=== PATIENT | male | born 1965 | race Caucasian/White ===

== ENCOUNTER 2023-02-12 00:26 | Emergency (ER) | payer MEDICAID ==
[~2023-02-12] VITALS: Ht 180.3 cm; Wt 106.1 kg
[2023-02-12 00:34] VITALS: BP_SYST 145; PULSE 83; RESP 16; TEMP 98; O2SAT 98
[2023-02-12] MEDS ORDERED: IBUP-1971 PO (01:00)
[2023-02-12] MEDS ORDERED: KETOROLAC TROMETHAMINE 60 MG/2 ML VIAL IM ONE (01:00)
[2023-02-12 01:25] VITALS: BP_SYST 145; PULSE 83; RESP 16; TEMP 98; O2SAT 98
== END 2023-02-12 01:25 | disposition home or self-care (01) ==
LOC: SED 00:26
DX: M79.18 Myalgia, other site (principal); M79.671 Pain in right foot; M79.10 Myalgia, unspecified site; R07.9 Chest pain, unspecified; E11.9 Type 2 diabetes mellitus without complications; I10 Essential (primary) hypertension; Z79.899 Other long term (current) drug therapy
CPT/HCPCS: 99283; 96372; J1885